=== PATIENT | female | born 1965 | race Caucasian/White ===

== ENCOUNTER 2017-10-18 17:45 | Inpatient (IN) | payer BC, SELFPAY ==
[2017-10-18] MEDS ORDERED: Ondansetron ODT 4 MG TAB ONE (18:14)
[2017-10-18 18:26] LABS: Bilirubin Small (Negative); Blood, Urine Negative (Negative); Glucose, Urine (Dipstick) Negative (Negative); Leukocyte Negative (Negative); Nitrite Negative (Negative); Protein, Urine (Dipstick) Negative (Neg-Trace); Urobilinogen 0.2 mg/dL (0.2-1.0); pH, Urine 5.5 (5.0-9.0)
[2017-10-18 18:31] LABS: #Basophils 0.1 thou/uL (0.0-0.2); #Eosinphils 0.2 thou/uL (0.0-0.7); #Lymphocytes 1.3 thou/uL (1.20-3.40); #Monocytes 0.9 thou/uL (0.11-0.59); #Neutrophils 12.2 thou/uL (1.40-6.50); %Basophils 0.5 % (0.0-1.0); %Eosinophils 1.1 % (0.0-10.0); %Lymphocytes 9.1 % (21.0-51.0); %Monocytes 6.1 % (0.0-10.0); %Neutrophils 83.2 % (42.0-75.0); Hemoglobin 14.1 g/dL (12.0-16.0); Mean Corpuscular HGB CONC 34.7 g/dL (32.0-36.0); Mean Corpuscular Hemoglobin 30.8 pg (27.0-31.0); Mean Corpuscular Volume 88.6 fL (78.0-98.0); Mean Platelet Volume 5.9 fL (7.4-10.4); Platelet Count 326 thou/uL (130-400); RBC Distribution Width 12.3 % (11.5-14.5); Red Blood Cell (RBC) Count 4.58 mill/uL (4.20-5.40); White Blood Cell (WBC) Count 14.6 thou/uL (4.8-10.8)
[2017-10-18 18:32] LABS: Clarity Clear (Clear); Specific Gravity, Urine 1.028 (1.002-1.036)
[2017-10-18 18:52] LABS: ALT (SGPT) 121 U/L (8-55); AST (SGOT) 132 U/L (5-34); Albumin 4.7 g/dL (3.5-5.0); Alkaline Phosphatase 85 U/L (40-150); Anion Gap 20 mmol/L (10-20); BUN (Urea Nitrogen) 20 mg/dL (9.8-20.1); Bilirubin, Total 0.9 mg/dL (0.2-1.2); Calc. Creatinine Clearance 0 mL/min (70-130); Calcium 10.5 mg/dL (7.8-10.44); Carbon Dioxide 19 mmol/L (22-29); Chloride 98 mmol/L (98-107); Estimated GFR-MDRD 67; Globulin 3.3 g/dL (2.4-3.5); Glucose 108 mg/dL (70-105); Potassium 4.2 mmol/L (3.5-5.1); Sodium 133 mmol/L (136-145)
[2017-10-18 19:05] LABS: Lipase 2973 U/L (8-78)
[2017-10-18] MEDS ORDERED: Metoclopramide HCl 10 MG/2 ML VIAL ONE (19:59)
[2017-10-19] MEDS ORDERED: Morphine 4 MG/ML VIAL IV PRN (00:08)
[2017-10-19 00:13] VITALS: BMI 35.8
[2017-10-19] MEDS ORDERED: Lactated Ringer's 1,000 ML IV SCH (00:15)
[2017-10-19] MEDS ORDERED: Ondansetron HCl/PF 4 MG in Sodium Chloride 0.9% 50 ML IVPB SCH (00:30)
[2017-10-19] MEDS ORDERED: Ondansetron HCl/PF 4 MG/2 ML Vial IVP SCH (00:45)
[2017-10-19] MEDS ORDERED: Bisacodyl 5 MG TAB PO PRN (01:58)
[2017-10-19] MEDS ORDERED: Lorazepam 2 MG/ML VIAL SLOW IVP PRN (01:58)
[2017-10-19] MEDS ORDERED: Mag-Al 1200 mg/1200 mg/30 ML UDCUP PO PRN (01:58)
[2017-10-19] MEDS ORDERED: Diabetic Tussin 200 MG/10 ML UDCUP PO PRN (01:58)
[2017-10-19] MEDS ORDERED: Nitroglycerin 0.4 MG TAB (25 Tab Bottle) SL PRN (01:58)
[2017-10-19] MEDS ORDERED: Senokot 8.6 MG TAB PO PRN (01:58)
[2017-10-19] MEDS ORDERED: Benzonatate 100 MG CAP PO PRN (01:58)
[2017-10-19] MEDS ORDERED: Loratadine 10 MG TAB PO PRN (01:58)
[2017-10-19] MEDS ORDERED: Calcium Carbonate 500 MG ChewTAB PO PRN (01:58)
[2017-10-19] MEDS ORDERED: Meperidine HCl/PF 25 MG/ML VIAL SLOW IVP PRN ×2 (02:40→06:22)
[2017-10-19] MEDS: Promethazine HCl 25 MG/ML VIAL IM PRN ×3 (02:47→16:57)
[2017-10-19] MEDS ORDERED: Pantoprazole 40 MG VIAL IVP SCH (03:15)
--- NOTE | 2017-10-19 03:40 | HP ---
PRIMARY CARE PHYSICIAN: Pato Watts M.D. DATE OF ADMISSION: 10/19/2017 CHIEF COMPLAINT: Abdominal pain, nausea, and vomiting. HISTORY OF PRESENTING ILLNESS: Ms. Nixon is a 52-year-old female with past medical history of hyper tension as well as history of pancreatitis in 01/2016, who presented to the emergency room with the a rosalind-mentioned complaint. History is mainly obtained by the patient herself and electronic medical r ecords have been reviewed. The patient was last admitted to our facility in 01/2016 at which time suly mathias was found to have pancreatitis, suspected to be gallstone pancreatitis. At that time, she underwen t a laparoscopic cholecystectomy. The patient reports she has been feeling fine since her surgery 2 years ago in 2015 up until today. Ms. Nixon had sudden onset of sharp abdominal pain yesterday afternoon. She initially had a little discomfort that she felt in her back, but later the pain became more intense. She describes it as a 9/10 in intensity, radiating to back. It was mainly located in the middle of the abdomen otherwise. It was associated with nausea, vomiting, and poor p.o. intake. She also felt somewhat lightheaded. She denies any fever, chills, or recent illnesses. She denies any diarrhea. No bloody stools or bl ack colored stools. She tried some naproxen at home without any benefit. Upon presentation to the emergency room, her blood pressure was 177/96 with a heart rate of 103. She underwent general evaluation and was found to have acute pancreatitis with a lipase of 2973. Her li jorge luis enzymes were elevated with AST of 132 and ALT of 121. She was given IV fluids as well as pain me dications and is now being admitted for acute recurrent pancreatitis. PAST MEDICAL HISTORY: 1. Gallstone pancreatitis in 01/2016, status post laparoscopic cholecystectomy. 2. Hypertension. PAST SURGICAL HISTORY: 1. Cholecystectomy. 2. Hysterectomy. SOCIAL HISTORY: She lives at home. She is a former smoker, quit many years ago. No history of drug and alcohol abuse. PSYCHIATRIC HISTORY: No anxiety, no depression. FAMILY HISTORY: No strong family history of premature coronary artery disease, stroke, cancer, or pa ncreatitis. ALLERGIES: Include CODEINE, IBUPROFEN, and PENICILLIN. CURRENT HOME MEDICATIONS: Lisinopril 20 mg p.o. b.i.d. and Nexium 20 mg p.o. daily. REVIEW OF SYSTEMS: A 12-point review of systems was done. It is negative except for those mentioned in the history and physical. LABORATORY DATA AND IMAGING: CBC shows WBCs at 14.6 with 83% neutrophils. Serum chemistry shows sod ium of 133, bicarbonate 19, glucose 108, calcium 10.5, AST 132, ALT 121, lipase 2973. Urinalysis ahmet ws small bilirubin and ketones. A 12-lead EKG by my review shows sinus bradycardia at 56 beats per m inute without any ST elevation or depression. PHYSICAL EXAMINATION: VITAL SIGNS: Most recent vital signs, temperature 98, pulse of 74, respirations 16, saturating 100% on room air, blood pressure 153/79. GENERAL: She appears uncomfortable, lying in bed without any acute distress. She is feeling nauseat ed throughout the interview. She has been having some bilious small amount of vomiting since she has been upstairs on the floor from the ER. HEENT: Mucous membrane is slightly dry. No oropharyngeal exudate or erythema. Head is normocephali c and atraumatic. Pupils are equal, reactive to light and accommodation. Extraocular movement intac t. NECK: Supple without any lymphadenopathy, JVD or bruit. CHEST: Clear to auscultation without any wheezing, rales or rhonchi. CARDIOVASCULAR: Rhythm is regular without any murmur, rubs or gallops. ABDOMEN: Diffusely tender to even slightest palpation. No rebound, guarding or rigidity. It is sof t and nondistended. EXTREMITIES: Free of any cyanosis, clubbing, or edema. NEUROLOGIC: Nonfocal. SKIN: Free of any rashes or bruises. Feel warm and dry to touch. PSYCHIATRIC: Normal affect. IMPRESSION AND PLAN: 1. Acute recurrent pancreatitis. Possible etiologies can be retained CBD stone. The patient had he r lipid panel checked earlier this year, which was unremarkable. At this time, we will keep her n.p. o. and provide the generous IV fluid hydration. We will request consultation with Gastroenterology i n the morning for possible ERCP versus MRCP. Repeat the levels of amylase and liver enzymes in the m orning as well. We will start her on symptomatic and supportive care with IV pain medications and IV antiemetics. She will be admitted to telemetry unit. Currently, she is hemodynamically stable. We will check magnesium and phosphorus levels as well. Recheck calcium levels as well. 2. Elevated liver enzymes secondary to #1. We will recheck in the morning. 3. Systemic inflammatory response syndrome secondary to #1. Monitor and continue IV fluids. 4. History of hypertension, currently well controlled. As the patient is n.p.o., we will hold the l isinopril for now and add p.r.n. antihypertensives. 5. Add deep venous thrombosis and gastrointestinal prophylaxis with IV Protonix b.i.d. as well as Lo venox subcutaneously daily. 6. Code status: FULL CODE. Discussed with the patient. DISPOSITION: Ms. Nixon is currently being admitted to the hospital for acute recurrent pancreatitis . Estimated length of stay at least 2-3 midnight. Further management will depend upon her clinical course.
[2017-10-19 06:36] LABS: #Eosinphils 0.1 thou/uL (0.0-0.7); #Lymphocytes 1.1 thou/uL (1.20-3.40); #Monocytes 1.1 thou/uL (0.11-0.59); #Neutrophils 11.4 thou/uL (1.40-6.50); %Basophils 0.2 % (0.0-1.0); %Eosinophils 0.5 % (0.0-10.0); %Lymphocytes 7.9 % (21.0-51.0); %Monocytes 8.1 % (0.0-10.0); %Neutrophils 83.3 % (42.0-75.0); Hemoglobin 12.5 g/dL (12.0-16.0); Mean Corpuscular Hemoglobin 30.6 pg (27.0-31.0); Mean Corpuscular Volume 90.2 fL (78.0-98.0); Mean Platelet Volume 6.1 fL (7.4-10.4); Platelet Count 273 thou/uL (130-400); RBC Distribution Width 12.3 % (11.5-14.5); Red Blood Cell (RBC) Count 4.07 mill/uL (4.20-5.40); White Blood Cell (WBC) Count 13.7 thou/uL (4.8-10.8)
[2017-10-19 06:47] LABS: ALT (SGPT) 114 U/L (8-55); AST (SGOT) 118 U/L (5-34); Albumin 4.2 g/dL (3.5-5.0); Alkaline Phosphatase 88 U/L (40-150); Anion Gap 13 mmol/L (10-20); BUN (Urea Nitrogen) 18 mg/dL (9.8-20.1); Bilirubin, Direct 0.4 mg/dL (0.1-0.3); Bilirubin, Total 0.9 mg/dL (0.2-1.2); Calc. Creatinine Clearance 118 mL/min (70-130); Calcium 9.8 mg/dL (7.8-10.44); Carbon Dioxide 26 mmol/L (22-29); Cardiac Risk 2.6 (Less than 4.5); Chloride 99 mmol/L (98-107); Cholesterol 184 mg/dl (< 200 Desired); Estimated GFR-MDRD 78; Glucose 98 mg/dL (70-105); HDL Cholesterol 70 mg/dL (>60 Neg Risk); LDL Cholesterol, Calculated 99 mg/dL; Magnesium 1.6 mg/dL (1.6-2.6); Phosphorus 3.8 mg/dL (2.3-4.7); Protein, Total 6.8 g/dL (6.0-8.3); Sodium 134 mmol/L (136-145); Triglycerides 76 mg/dL (Less than 150)
[2017-10-19 07:00] LABS: Lipase 1654 U/L (8-78)
[2017-10-19] MEDS: Sodium Chloride 0.9% 1,000 ML IV SCH ×5 (07:03→22:18)
[2017-10-19] MEDS: Ondansetron HCl/PF 4 MG/2 ML Vial IVP PRN ×3 (07:04→20:39)
[2017-10-19] MEDS: Pantoprazole 40 MG VIAL IVP SCH ×2 (08:11→20:36)
[2017-10-19] MEDS: Enoxaparin Sodium 40 MG/0.4 ML SYRINGE SC SCH (08:11)
[2017-10-19] MEDS: hydrALAZINE 20 MG/ML VIAL SLOW IVP PRN (08:12)
[2017-10-19] MEDS ORDERED: Famotidine/PF 20 mg/2ml Vial SLOW IVP SCH (09:00)
[2017-10-19] MEDS ORDERED: Fentanyl 100 MCG/2 ML VIAL SLOW IVP PRN (09:29)
[2017-10-19] MEDS: Fentanyl 100 MCG/2 ML VIAL SLOW IVP PRN ×2 (12:28→22:08)
--- NOTE | 2017-10-19 14:09 | PDOC.EVN ---
Event Note - Event Note Event Note: Chart reviewed. Patient seen. Has ongoing abdo pain, waiting to see GI. Change pain medication to fentanyl.
[2017-10-19] MEDS: Ketorolac Tromethamine 30 MG/ML VIAL IVP PRN (18:50)
--- NOTE | 2017-10-19 21:10 | CON ---
DATE OF CONSULTATION: 10/19/2017 REASON FOR CONSULTATION: Pancreatitis. HISTORY OF PRESENT ILLNESS: Ms. Nixon is a 52-year-old female, who was admitted last night with stacy creatitis. She presented to the emergency room around 8 p.m. with complaints of worsening abdominal pain that started the evening before was in the epigastrium radiated somewhat to her back, associated with nausea and vomiting. She has not been able to eat. She had no fever or chills. She tried ashlee e Naprosyn at home without improvement. In the emergency room, she received some morphine and then h ere in the floor was receiving Demerol 12.5 mg then early this morning she got 12.5 mg of fentanyl or rhett to 6 hours. She has been started on IV fluids and received about 2.5 liters of fluid since prese ntation. Presently, they are going at 200 mL an hour normal saline. Her pain is better controlled n ow, but she states that she does not think she can wait 6 hours. She has received Phenergan and Zofr an for vomiting. She does note she is making urine, but it is quite dark. She has had no fever or c hills. As far as etiology of her pancreatitis, her first bout was in [address] [facility]. She was seen by Dr. Riggins that time, the notes from Dr. Shepherd and her first admission here indicate that the re was some concern is alcohol related. The patient states that she may drink 1-2 drinks every 3-4 w eeks. Her last drink of alcohol was about 2 weeks ago. She states she notes no viral symptoms. She notes no abdominal trauma. She started no new medications. She is on lisinopril, which has been on for about 20 years and she takes a baby aspirin a day. She did take an ibuprofen for the pain, but did not help. She denies any melena, hematochezia or hematemesis, fever or chills, recent weight los s. There is no family history of pancreatitis. Again, no viral symptoms, no history of spider bites . There is no history of hyperlipidemia. Her first visit here was in 10/2015, she apparently had be en at the [facility] before that given fluids became very edematous, was urinatin g and she left the hospital AMA and came here. Here she got better relatively quickly. Her liver fu nction tests were normal. An ultrasound was normal. A CAT scan showed improvement from the imaging at the [facility] and she was home within about 2 days. She represented in 02/11 16. At that time, seen by Dr. Zaidi, again she had normal LFTs with her second presentation and no re al etiology. She had a cholecystectomy that showed gallbladder that was glistening light and there w as chronic cholecystitis. There were no stones. She had a normal IOC and again had normal liver fun ction tests at that admission. PAST MEDICAL HISTORY: 1. Pancreatitis in 2010, 10/2015 and 01/2016, etiology unclear. She had a laparoscopic cholecystect govind with no gallstones, normal IOC, and she had normal LFTs at that second admission. 2. Hypertension for many years. 3. At the last admission here in 2015, there was concern for possible enterovaginal fistula, which w as to be addressed at a later date after pancreatitis resolves. She was treated for yeast infection at that time. Ultimately, she states she has never had any kind of drainage from her vaginal area ag ain. She denies any lower abdominal pain or history of diverticulitis. PAST SURGICAL HISTORY: Cholecystectomy and hysterectomy. SOCIAL HISTORY: She lives at home. She is a former smoker. She quit many years ago. She denies us ing drugs. She does drink alcohol maybe a couple drinks every 3-4 weeks. She had no recent binge dr inking before this admission. FAMILY HISTORY: Negative history of colon cancer, pancreatitis or coronary disease. ALLERGIES: CODEINE, IBUPROFEN, and PENICILLIN. HOME MEDICATIONS: Lisinopril 20 mg p.o. b.i.d., Nexium p.r.n. She sees Dr. Watts in primary [facility] e clinic in [place]. REVIEW OF SYSTEMS: GI: Negative for weight loss, dysphagia, odynophagia, reflux, melena, hematochezia, hematemesis, jaron nge in bowel function otherwise GI review of systems as per HPI. HEENT, CARDIAC, RESPIRATORY, , NEUROLOGIC, ENDOCRINE: All otherwise, negative. PRESENT MEDICATIONS: Tylenol, Maalox, Tessalon, bisacodyl, Tums p.r.n., Lovenox 40 subcu daily, Pepc id, fentanyl 12.5 q.6, p.r.n., Apresoline p.r.n., Claritin p.r.n., Ativan p.r.n., nitroglycerin p.r.n., Zofran 4 q.6 hours p.r.n., Protonix 40 IV q.12 hours, Phenergan 12.5 q.6 hours p.r.n., Senok ot, p.r.n., and normal saline 200 mL an hour. PHYSICAL EXAMINATION: VITAL SIGNS: Patient has been afebrile since admission. Temperature is 98, pulse 61, respirations 1 8, O2 sat 94%, blood pressure 170/80 and 171/77. GENERAL: She is in mild distress at this time, she states she feels like her pain may be coming back , but she is not vomiting and feels much better than she did just a few hours ago. HEENT: Oropharynx is slightly dry. NECK: Supple, without adenopathy. LUNGS: Clear, without rhonchi or rales. HEART: Has regular rate and rhythm with no murmurs. ABDOMEN: Soft, but tender to touch in the upper abdomen. There is no rebound or guarding. Bowel so unds are quiescent. EXTREMITIES: No clubbing, cyanosis or edema. SKIN: Without rash or lesions. There was no evidence of ecchymosis in the flanks or periumbilical a zoraida. NEUROLOGIC: Notable for intact. Cranial nerves, good movement and strength in both upper and lower extremities. LABORATORY STUDIES: Last night her white count was 14.6, today is 13.7, hemoglobin was 14.1, it is n ow 12.5, platelets were 326, now 273. She has 83% segs. She did have a normal CBC on 08/14/2017 wit h her PCP. Chemistries notable for sodium of 134, potassium of 4, chloride 99, bicarb 26, anion gap 9, BUN 18, creatinine 0.7, glucose 88, calcium was 10.5, now is 9.8, creatinine had been 0.88 yesterd ay and BUN have been 20 yesterday, phosphorus 3.8, magnesium 1.6, bilirubin 0.6. AST and ALT are 118 and 114, these were 132 and 121 yesterday, there were 37 and 29 on 08/14/2017. Alkaline phosphatase is 88. Lipase was 2973 on admission, it is 1654 now. Urine showed ketones, no protein, no blood. [facility] screen on 02/04/2016 was negative. IMAGING: On this admission, operative cholangiogram on 02/07/2016 was normal. CAT scan of abdomen a nd pelvis on 02/04/2016 showed inflammation of the pancreas improved from the previous study. Abdomi nal ultrasound on 02/03/2016 was normal. ASSESSMENT: This is a 52-year-old female, who was admitted with pancreatitis; however, she has recei chelle about 2.5 liters of fluid. Her hemoglobin has come down. Her BUN and creatinine are stable. Layla mathias does have mildly elevated AST and ALT, which were notable for AST of 37 in July of this year and the n in 07/2016, she had an AST and ALT of 72 and 111. Prior to that all of her liver function tests acharya ve been normal previous bouts of pancreatitis. She had had empiric cholecystectomy in 2015 after 2 b outs of pancreatitis of the gallbladder did look diseased, but there were no gallstones and IOC was n egative at that time. Presently, she seems to be receiving adequate hydration. She is making urine. Her labs are stable. She shows no signs of sepsis with a normal blood pressure and pulse. She has no fever. The etiology of pancreatitis is unclear. This could be related to microlithiasis with el evated LFTs. It could be alcohol related. There is a possibility that it could be related to her AC E inhibitor. She is on this for a long time, but they can cause pancreatitis sometimes from angioede ma. 1. Pain, poorly controlled. She is on q.6 hours Fentanyl 12.5 mg. 2. Nausea better controlled now with Ultram, Phenergan, and Zofran. 3. Abnormal liver function tests. This may be related to choledocholithiasis, although she has got a normal alkaline phosphatase and AST. This could be related to fatty liver and could be related to alcohol surreptitious use, but she denies drinking recently or could just be from edema, irritation a nd inflammation related to her pancreatitis. 4. She has had previously been evaluated for autoimmune pancreatitis, normal MERCEDEZ. RECOMMENDATIONS: 1. Continue IV fluids at 200 mL an hour, goal will be about 4-5 liters in the first 24 hours of admi ssion and then reevaluate all labs in the morning. 2. Watch urine output. If this is minimal then she will need a bladder scan and if retention a Fole y catheter. If she is not making urine, she will need a bolus of fluid. 3. I would hold off on, but on antibiotics at this point in time. 4. We would hold off on CAT scan at this time with reporting marginal urine output, I do not think t his is going to change her management. 5. Watch the LFTs and lipase as well as electrolytes and renal function with plans for imaging proba jaylon MRCP in the next couple of days. 6. She may ultimately need an ERCP, but that would be best performed once the acute episode is over. 7. Agree with DVT and ulcer prophylaxis. We will stop the famotidine as she is on Pepcid. 8. For pain control, we will go ahead and place her on fentanyl 25 q.2 hours p.r.n. for pain to be h eld if there is any somnolence or sleepiness. If this is ineffective, then she will need a [employer] pump.
[2017-10-20] MEDS: Promethazine HCl 25 MG/ML VIAL IM PRN (00:37)
[2017-10-20] MEDS: hydrALAZINE 20 MG/ML VIAL SLOW IVP PRN (00:48)
[2017-10-20] MEDS: Ketorolac Tromethamine 30 MG/ML VIAL IVP PRN ×3 (01:42→18:03)
[2017-10-20] MEDS ORDERED: diphenhydrAMINE 50 MG/ML VIAL IVP SCH (02:00)
[2017-10-20] MEDS ORDERED: Metoclopramide HCl 10 MG/2 ML VIAL IVP SCH (02:00)
[2017-10-20] MEDS: Sodium Chloride 0.9% 1,000 ML IV SCH ×4 (03:32→17:20)
[2017-10-20] MEDS: Fentanyl 100 MCG/2 ML VIAL SLOW IVP PRN ×2 (03:48→21:33)
[2017-10-20] MEDS: Metoclopramide HCl 10 MG/2 ML VIAL IVP SCH ×4 (05:52→21:40)
[2017-10-20] MEDS: diphenhydrAMINE 50 MG/ML VIAL IVP SCH ×4 (05:56→21:39)
[2017-10-20] MEDS: Enoxaparin Sodium 40 MG/0.4 ML SYRINGE SC SCH (09:03)
[2017-10-20] MEDS: Pantoprazole 40 MG VIAL IVP SCH ×2 (09:03→21:38)
--- NOTE | 2017-10-20 16:11 | PDOC.PN ---
- Subjective Encounter Start Date: 10/20/17 Encounter Start Time: 16:00 Subjective: f/u for acute pancreatitis of unclear etiology. Overall feels better. No -: N/V. - Objective MAR Reviewed: Yes Vital Signs & Weight: Vital Signs (12 hours) Temp Pulse Resp BP Pulse Ox 10/20/17 12:31 99.3 F 76 15 149/71 H 97 10/20/17 08:57 98.6 F 71 20 162/77 H 94 L Weight Weight 198 lb 9.6 oz I&O: 10/19/17 10/20/17 10/21/17 06:59 06:59 06:59 Intake Total 1247 4843 Output Total 300 1700 Balance 947 3143 Result Diagrams: 10/19/17 05:31 10/19/17 05:31 Additional Labs: Laboratory Tests 10/18/17 10/18/17 10/19/17 18:20 18:20 05:31 WBC 14.6 H Neutrophils % 83.2 H Sodium 133 L Calcium 10.5 H AST 132 H 118 H ALT 121 H 114 H Triglycerides 76 Cholesterol 184 LDL Cholesterol, Calc 99 HDL Cholesterol 70 Lipase 2973 H 1654 H EKG Reviewed by me: Yes (Tele - SR in 70's) Phys Exam - Physical Examination Constitutional: NAD HEENT: PERRLA, sclera anicteric, oral pharynx no lesions Neck: no nodes, no JVD, supple, full ROM Respiratory: no wheezing, no rales, no rhonchi, clear to auscultation bilateral S1, S2 Cardiovascular: RRR, no significant murmur, no rub, gallop mild TTP in mid-epigastric region Gastrointestinal: soft, positive bowel sounds Musculoskeletal: no edema, pulses present Neurological: non-focal, normal sensation, moves all 4 limbs Psychiatric: normal affect, A&O x 3 Skin: no rash, normal turgor, cap refill <2 seconds Dx/Plan (1) Acute pancreatitis Code(s): K85.9 - ACUTE PANCREATITIS, UNSPECIFIED * DO NOT USE * Status: Acute Qualifiers: Pancreatitis type: unspecified pancreatitis type Comment: Recurrent, supportive mgmt, decrease IVF's 125ml/h, pain control with Fentanyl, serial Lipase (2) Transaminitis Code(s): R74.0 - NONSPEC ELEV OF LEVELS OF TRANSAMNS & LACTIC ACID DEHYDRGNSE Status: Acute Comment: Secondary to #1, serial LFT's (3) GERD (gastroesophageal reflux disease) Code(s): K21.9 - GASTRO-ESOPHAGEAL REFLUX DISEASE WITHOUT ESOPHAGITIS Status: Chronic Qualifiers: Esophagitis presence: without esophagitis Qualified Code(s): K21.9 - Gastro -esophageal reflux disease without esophagitis Comment: Continue Protonix 40mg IV q12h (4) HTN (hypertension) Code(s): I10 - ESSENTIAL (PRIMARY) HYPERTENSION Status: Chronic Qualifiers: Hypertension type: essential hypertension Qualified Code(s): I10 - Essential (primary) hypertension Comment: Resume Lisinopril 20mg po BID - Plan social services assistant, out of bed/ambulate, DVT proph w/SCDs Stable overall -: Start H2O/ice chips -: OOB/ambulate -: Fentanyl 25mcg IV q2h prn -: AM lab: CMP, CBC * ? Home in 24-48h
[2017-10-20] MEDS: Ondansetron HCl/PF 4 MG/2 ML Vial IVP PRN (18:02)
--- NOTE | 2017-10-20 18:08 | PRG ---
DATE OF SERVICE: 10/20/2017 SUBJECTIVE: Ms. Nixon says she feels a lot better today than yesterday. She has had no further vomiting, upper abdominal discomfort and tenderness persist, but are improved. She has been tolerating sips of water today. She has not required any fentanyl but has received Toradol. She has been afebrile and hemodynamically stable. OBJECTIVE: VITAL SIGNS: Temperature 99.1, pulse 67, blood pressure 170/78, and 97% oxygen saturation on room air. GENERAL: No acute distress. HEART: Regular rate and rhythm. LUNGS: Clear to auscultation bilaterally. ABDOMEN: Bowel sounds hypoactive, soft, tender to palpation in the upper abdomen, but no guarding or rebound tenderness. EXTREMITIES: No peripheral edema. LABORATORY STUDIES: WBC 13.7, hemoglobin 12.5, platelets 273. Sodium 134, potassium 4.0, BUN 18, creatinine 0.78, total bilirubin 0.9, alkaline phosphatase 88, AST 118, ALT 114, and lipase 1654. ASSESSMENT AND PLAN: 1. Pancreatitis, recurrent, acute, clinically improving. 2. Elevated liver function tests. With regard to this episode of pancreatitis , this does appear to be clinically improving. I think if she has a good night and pain medication requirements remain minimal, then her diet can be advanced to a clear liquid diet tomorrow to see how she does. With regard to the etiology of this episode of recurrent pancreatitis, this is a bit unclear. Note that she had a prior cholecystectomy and negative intraoperative cholangiogram during a prior presentation. However, she does have this elevation in transaminases. Further imaging of the common bile duct will be necessary. We will go ahead and order an MRCP to be performed tomorrow. Please trend the LFTs tomorrow as well. If there is any evidence of retained stones or sludge in the common bile duct, the patient may need an ERCP. Otherwise, longer term management to be determined based on presence or absence of MRCP findings. Thank you for the consultation. GI will continue to follow along. SHANTELLE
[2017-10-20] MEDS: Lisinopril 20 MG TAB PO SCH (21:40)
[2017-10-21] MEDS: Ketorolac Tromethamine 30 MG/ML VIAL IVP PRN ×3 (00:05→22:22)
[2017-10-21] MEDS: hydrALAZINE 20 MG/ML VIAL SLOW IVP PRN ×3 (00:06→21:10)
[2017-10-21] MEDS: Sodium Chloride 0.9% 1,000 ML IV SCH ×2 (04:19→04:25)
[2017-10-21] MEDS: diphenhydrAMINE 50 MG/ML VIAL IVP SCH ×4 (04:20→21:04)
[2017-10-21] MEDS: Metoclopramide HCl 10 MG/2 ML VIAL IVP SCH ×4 (04:20→21:04)
[2017-10-21 05:44] LABS: Band 10 % (5-11); Eosinophils 1 % (0-10); Hemoglobin 10.5 g/dL (12.0-16.0); Lymphocytes 6 % (21-51); MDiff Complete? YES; Mean Corpuscular HGB CONC 34.8 g/dL (32.0-36.0); Mean Corpuscular Volume 92.1 fL (78.0-98.0); Mean Platelet Volume 6.5 fL (7.4-10.4); Metamyelocyte 1 % (0-0); Monocytes 6 % (0-10); Neutrophil 76 % (42-75); PLT Morphology Comment Appears Adequate; Platelet Count 218 thou/uL (130-400); RBC Distribution Width 12.4 % (11.5-14.5); Red Blood Cell (RBC) Count 3.27 mill/uL (4.20-5.40); White Blood Cell (WBC) Count 15.9 thou/uL (4.8-10.8)
[2017-10-21 05:58] LABS: ALT (SGPT) 87 U/L (8-55); AST (SGOT) 81 U/L (5-34); Albumin 3.4 g/dL (3.5-5.0); Alkaline Phosphatase 89 U/L (40-150); Anion Gap 14 mmol/L (10-20); BUN (Urea Nitrogen) 17 mg/dL (9.8-20.1); Bilirubin, Total 0.8 mg/dL (0.2-1.2); Calc. Creatinine Clearance 132 mL/min (70-130); Calcium 8.9 mg/dL (7.8-10.44); Carbon Dioxide 19 mmol/L (22-29); Chloride 109 mmol/L (98-107); Estimated GFR-MDRD 86; Globulin 2.6 g/dL (2.4-3.5); Glucose 85 mg/dL (70-105); Potassium 3.7 mmol/L (3.5-5.1); Sodium 138 mmol/L (136-145)
[2017-10-21] MEDS: Enoxaparin Sodium 40 MG/0.4 ML SYRINGE SC SCH (09:13)
[2017-10-21] MEDS: Pantoprazole 40 MG VIAL IVP SCH (09:13)
[2017-10-21] MEDS: Lisinopril 20 MG TAB PO SCH ×2 (09:13→21:03)
--- NOTE | 2017-10-21 10:45 | MRI ---
MRI ABDOMEN WITHOUT CONTRAST: HISTORY: Recurrent pancreatitis. COMPARISON: CT from 02/04/2016. TECHNIQUE: MRI of the abdomen performed without intravenous contrast, with 3D rendering provided for MRCP. FINDINGS: There is mild interstitial edema in the lung bases. There is mild inflammatory stranding around the pancreatic head. Normal flow void of the splenic vein. No intrahepatic or extrahepatic biliary dilatation. No choledocholithiasis. No dilatation of the pa ncreatic duct. The spleen is unremarkable. Signal of the liver drops on the [id number] sequence, with moderate st eatosis. Hepatic fat fraction is 19.2% and fat percentage is 20.2%. Background marrow signal is normal. No dilated loops of large or small bowel. Adrenal glands are un remarkable. IMPRESSION: 1. Acute edematous pancreatitis without imaging findings to explain a biliary source. No intrahepat ic or extrahepatic biliary dilatation. No choledocholithiasis. 2. Moderate hepatic steatosis. POS: [facility]
--- NOTE | 2017-10-21 15:43 | PDOC.PN ---
- Subjective Encounter Start Date: 10/21/17 Encounter Start Time: 15:30 Subjective: f/u for acute/chronic pancreatitis. Feels better overall. Tolerating liquid -: diet without increased abd pain. - Objective MAR Reviewed: Yes Vital Signs & Weight: Vital Signs (12 hours) Temp Pulse Resp BP BP BP Pulse Ox 10/21/17 12:00 99.6 F 86 18 164/79 H 92 L 10/21/17 09:13 183/91 H 10/21/17 08:00 97.8 F 85 20 183/91 H 94 L 10/21/17 04:10 99.1 F 88 16 179/82 H 93 L Weight Weight 198 lb 9.6 oz I&O: 10/20/17 10/21/17 10/22/17 06:59 06:59 06:59 Intake Total 4843 4700 360 Output Total 1700 550 Balance 3143 4150 360 Result Diagrams: 10/21/17 04:50 10/21/17 04:50 Additional Labs: Laboratory Tests 10/18/17 10/18/17 10/19/17 18:20 18:20 05:31 WBC 14.6 H Neutrophils % 83.2 H Sodium 133 L Calcium 10.5 H AST 132 H 118 H ALT 121 H 114 H Triglycerides 76 Cholesterol 184 LDL Cholesterol, Calc 99 HDL Cholesterol 70 Lipase 2973 H 1654 H Radiology Reviewed by me: Yes (MRCP - no obstruction or stone, hepatic steatosis ) EKG Reviewed by me: Yes (Tele - SR) Phys Exam - Physical Examination Constitutional: NAD HEENT: PERRLA, sclera anicteric, oral pharynx no lesions Neck: no nodes, no JVD, supple, full ROM Respiratory: no wheezing, no rales, no rhonchi, clear to auscultation bilateral S1, S2 Cardiovascular: RRR, no significant murmur, no rub, gallop mild TTP in mid-epigastrium Gastrointestinal: soft, no distention, positive bowel sounds Musculoskeletal: no edema, pulses present Neurological: non-focal, normal sensation, moves all 4 limbs Psychiatric: normal affect, A&O x 3 Skin: no rash, normal turgor, cap refill <2 seconds Dx/Plan (1) Acute pancreatitis Code(s): K85.9 - ACUTE PANCREATITIS, UNSPECIFIED * DO NOT USE * Status: Acute Qualifiers: Pancreatitis type: unspecified pancreatitis type Comment: Recurrent, supportive mgmt, decrease IVF's 75ml/h, pain control with Fentanyl, serial Lipase, MRCP unrevealing to etiology (2) Transaminitis Code(s): R74.0 - NONSPEC ELEV OF LEVELS OF TRANSAMNS & LACTIC ACID DEHYDRGNSE Status: Acute Comment: Secondary to #1, serial LFT's, likely due to steatosis (3) GERD (gastroesophageal reflux disease) Code(s): K21.9 - GASTRO-ESOPHAGEAL REFLUX DISEASE WITHOUT ESOPHAGITIS Status: Chronic Qualifiers: Esophagitis presence: without esophagitis Qualified Code(s): K21.9 - Gastro -esophageal reflux disease without esophagitis Comment: Continue Protonix 40mg po daily (4) HTN (hypertension) Code(s): I10 - ESSENTIAL (PRIMARY) HYPERTENSION Status: Chronic Qualifiers: Hypertension type: essential hypertension Qualified Code(s): I10 - Essential (primary) hypertension Comment: Resume Lisinopril 20mg po BID - Plan plan discussed w/ family, out of bed/ambulate, DVT proph w/SCDs Stable overall -: Decrease IVF's 75ml/h -: Change Protonix 40mg po daily -: Full liquid diet as tolerated -: AM lab: CMP, Lipase * Home in am
[2017-10-21] MEDS ORDERED: Sodium Chloride 0.9% 1,000 ML IV SCH (15:47)
--- NOTE | 2017-10-21 16:04 | PRG ---
DATE OF SERVICE: 10/21/2017 SUBJECTIVE: The patient is feeling quite a bit better today. She denies any nausea or vomiting. He r abdominal pain has been much improved. In fact, she has not required any pain medication so far to day. She has been tolerating a clear liquid diet and ate most of her broth and jello earlier today. She has remained hemodynamically stable. MRCP report came back showing normal common bile duct and characteristic changes of acute pancreatitis in the pancreatic head. PHYSICAL EXAMINATION: VITAL SIGNS: Temperature 99.6, pulse 86, blood pressure 164/79, 92% oxygen saturation on room air. GENERAL: No acute distress. HEART: Regular rate and rhythm. LUNGS: Clear to auscultation bilaterally. ABDOMEN: Bowel sounds hypoactive, soft, and nontender to palpation. EXTREMITIES: No peripheral edema. LABORATORY STUDIES: WBC 15.9, hemoglobin 10.5, platelets 218. Sodium 138, potassium 3.7, BUN 17, cr eatinine 0.71, total bilirubin 0.8, AST down to 81, ALT down to 87, alkaline phosphatase 89, albumin 3.4. ASSESSMENT AND PLAN: 1. Acute recurrent pancreatitis, clinically improving. 2. Elevated liver function tests, improving. I discussed the negative magnetic resonance cholangiop ancreatography result with the patient today. There is no evidence of choledocholithiasis and so end oscopic retrograde cholangiopancreatography is not indicated. The reason for her pancreatitis recurr ence remains unclear, but this episode does appear to be resolving. It is possible that it might be related to her BONG inhibitor, so I would consider discontinuing this upon discharge. We will advance her diet to full liquid diet and see how she does with this. She is able to advance her diet appropriately without worsening symptoms, anticipate she could be discharged home in the nex t day or two.
[2017-10-21] MEDS: Ondansetron HCl/PF 4 MG/2 ML Vial IVP PRN (16:07)
--- NOTE | 2017-10-21 22:51 | PDOC.EVN ---
Event Note - Event Note Event Note: pt complaining of sob, crackles, will hold on the fluids for now, we will monitor and adjust treatment accordingly.
[2017-10-22] MEDS: Acetaminophen 325 MG TAB PO PRN ×2 (04:23→09:09)
[2017-10-22] MEDS: hydrALAZINE 20 MG/ML VIAL SLOW IVP PRN (04:24)
[2017-10-22] MEDS: diphenhydrAMINE 50 MG/ML VIAL IVP SCH ×2 (04:26→09:08)
[2017-10-22] MEDS: Metoclopramide HCl 10 MG/2 ML VIAL IVP SCH ×2 (04:26→09:08)
[2017-10-22 06:55] LABS: ALT (SGPT) 149 U/L (8-55); AST (SGOT) 143 U/L (5-34); Albumin 3.4 g/dL (3.5-5.0); Alkaline Phosphatase 102 U/L (40-150); Anion Gap 12 mmol/L (10-20); BUN (Urea Nitrogen) 12 mg/dL (9.8-20.1); Calc. Creatinine Clearance 130 mL/min (70-130); Calcium 9.1 mg/dL (7.8-10.44); Carbon Dioxide 21 mmol/L (22-29); Chloride 104 mmol/L (98-107); Estimated GFR-MDRD 82; Globulin 2.6 g/dL (2.4-3.5); Glucose 118 mg/dL (70-105); Lipase 16 U/L (8-78); Potassium 3.5 mmol/L (3.5-5.1); Sodium 133 mmol/L (136-145)
[2017-10-22] MEDS: Enoxaparin Sodium 40 MG/0.4 ML SYRINGE SC SCH (09:06)
[2017-10-22] MEDS: Lisinopril 20 MG TAB PO SCH (09:07)
[2017-10-22 11:59] VITALS: BP 171/82; TEMP 98
--- NOTE | 2017-10-22 12:09 | PRG ---
DATE OF SERVICE: 10/22/2017 SUBJECTIVE: Ms. Nixon is feeling very well today. No recurrence of nausea, no vomiting. She has b een tolerating her full liquid diet. No abdominal pain. She did have a bit of shortness of breath l ast night, felt to be due to mild fluid overload, but this has resolved today. She is eager to go ho me. OBJECTIVE: VITAL SIGNS: Temperature 98.3, blood pressure 175/94, pulse 85, 94% oxygen saturation on room air. GENERAL: No acute distress. HEART: Regular rate and rhythm. LUNGS: Clear to auscultation bilaterally. ABDOMEN: Soft and nontender to palpation. Bowel sounds present. EXTREMITIES: Trace pretibial edema bilaterally. LABORATORY STUDIES: Sodium 133, potassium 3.5, BUN 12, creatinine 0.74, glucose 118. Total bilirubi n 1.0, alkaline phosphatase 102, AST 143, ALT 149, lipase normalized to 16. ASSESSMENT AND PLAN: 1. Pancreatitis, recurrent, acute, clinically resolved. 2. Elevated liver function tests. The patient's pancreatitis episode is clinically resolved. She is tolerating her diet with no furthe r abdominal pain or pain requirements. I will advance her diet to regular diet for lunch. I think i f this goes well, she can be discharged home today. Regarding the LFT elevation, note she had an [facility] P earlier this admission which showed no biliary abnormalities, no choledocholithiasis, no biliary di lation. She had a negative intraoperative cholangiogram with her recent cholecystectomy. As she has become asymptomatic, no further inpatient workup for elevated LFTs at this time. We will see her ba ck in the GI Clinic in the next 2-3 weeks with repeat LFTs then. Suspect that this may just reflect regional inflammation as a result of her pancreatitis. GI will sign off. Please call back anytime with questions or concerns.
--- NOTE | 2017-10-22 14:43 | DIS ---
DATE OF ADMISSION: 10/18/2017 DATE OF DISCHARGE: 10/22/2017 DISCHARGE DIAGNOSES: 1. Acute recurrent pancreatitis, resolving. 2. Transaminitis secondary to acute recurrent pancreatitis, improved. 3. Gastroesophageal reflux disease. 4. Hypertension, stable. 5. Hepatic steatosis. CONSULTATIONS: Dr. Gutierrez with GI Service. PERTINENT LAB AND X-RAY FINDINGS: Sodium ranged between 133-138, calcium ranged between 8.9-10.5. A ST ranged between 81-143, ALT ranged between 87-149, total bilirubin ranged between 0.8-1.0, total ch olesterol 184, triglycerides 76, HDL 70, LDL 99. Lipase ranged between 16-2973. CBC showed a white blood cell count ranging between 13.7-15.9. Abdominal MRI dated 10/21/2017 showed acute edematous pa ncreatitis without intrahepatic or extrahepatic biliary dilation. No choledocholithiasis noted. Mod erate hepatic steatosis. HOSPITAL COURSE: The patient was admitted to the telemetry unit after presenting with abdominal pain with associated nausea and vomiting and enzymatic confirmation of elevated lipase over 1999. The deo montanez was diagnosed with acute recurrent pancreatitis without specific identification of choledocholi thiasis. The patient also had associated transaminitis with abdominal MRI imaging performed at the [facility] of the GI service showing hepatic steatosis. The patient received IV fluids and pain contro l with IV morphine sulfate. The patient also received antiemetics with overall improvement in sympto matology. The patient continued to clinically improve with conservative measures with serial monitor ing of lipase showing normalization prior to discharge. The patient was transitioned from clear liqu ids to regular diet, tolerating without difficulty. The patient voided appropriately, ambulated with out assistance or difficulty with stable vital signs at the time of discharge. I examined the patien t at the time of discharge and discussed followup instructions, at which point the patient verbalized understanding and agreement. The patient is ready for discharge 10/22/2017. DISCHARGE MEDICATIONS: 1. Nexium 20 mg 1 tab p.o. daily. 2. Lisinopril 20 mg p.o. b.i.d. FOLLOWUP: The patient to follow up with her primary care provider, Dr. Watts within 7 days of di scharge. The patient will follow up with Dr. Jimbo Gutierrez with GI Service and to call his office for a ppointment time and date. CONDITION ON DISCHARGE: Stable. ACTIVITY: Ad nomi. DIET: Heart healthy. CODE STATUS: Full. DISPOSITION: Home, 10/22/2017.
== END 2017-10-22 15:16 | disposition home or self-care (01) | DRG 439 ==
LOC: ERS 17:45 → 2NO 23:39
PROVIDERS: ADMIT Internal Medicine; ATTEND Internal Medicine
DX: K85.90 Acute pancreatitis without necrosis or infection, unspecified (principal); R65.10 Systemic inflammatory response syndrome (SIRS) of non-infectious origin without acute organ dysfunction; K86.1 Other chronic pancreatitis; K76.0 Fatty (change of) liver, not elsewhere classified; I10 Essential (primary) hypertension; K21.9 Gastro-esophageal reflux disease without esophagitis; Z87.891 Personal history of nicotine dependence; Z88.6 Allergy status to analgesic agent; Z88.0 Allergy status to penicillin; Z88.5 Allergy status to narcotic agent; Z79.899 Other long term (current) drug therapy
CPT/HCPCS: 36415; 74181; 80048; 80053; 80061; 80076; 81003; 83690; 83735; 84100; 85007; 85025; 85027; 93005; 96361; 96365; 96375; 96376; A4216; C9113; J0360; J1200; J1650; J1885; J2060; J2175; J2270; J2405; J2550; J2765; J3010; Q0162; S0028